=== PATIENT | female | born 1990 | race American Indian/Alaskan Native ===

== ENCOUNTER 2019-12-16 21:40 | Emergency (ER) | payer OTHER ==
[2019-12-16] MEDS ORDERED: Naloxone HCl 0.4 mg/ml Vial ONE (22:06)
[2019-12-16 22:46] LABS: #Eosinphils 0.1 thou/uL (0.0-0.7); #Lymphocytes 1.7 thou/uL (1.20-3.40); #Monocytes 0.3 thou/uL (0.11-0.59); #Neutrophils 3.3 thou/uL (1.40-6.50); %Basophils 0.9 % (0.0-1.0); %Eosinophils 2.3 % (0.0-10.0); %Monocytes 5.7 % (0.0-10.0); %Neutrophils 60.2 % (42.0-75.0); Hemoglobin 14.3 g/dL (12.0-16.0); Mean Corpuscular HGB CONC 34.1 g/dL (32.0-36.0); Mean Corpuscular Hemoglobin 32.3 pg (27.0-31.0); Mean Corpuscular Volume 94.6 fL (78.0-98.0); Mean Platelet Volume 7.1 fL (7.4-10.4); Platelet Count 250 thou/uL (130-400); RBC Distribution Width 12.2 % (11.5-14.5); Red Blood Cell (RBC) Count 4.44 mill/uL (4.20-5.40); White Blood Cell (WBC) Count 5.5 thou/uL (4.8-10.8)
[2019-12-16 23:08] LABS: ALT (SGPT) 10 U/L (8-55); AST (SGOT) 14 U/L (5-34); Acetaminophen Less than 6.0 mcg/mL (10.0-30.0); Alcohol 195 mg/dL (Less than 10); Alkaline Phosphatase 84 U/L (40-110); Anion Gap 11 mmol/L (10-20); BUN (Urea Nitrogen) 8 mg/dL (7.0-18.7); Bilirubin, Total 0.4 mg/dL (0.2-1.2); Calc. Creatinine Clearance 0 mL/min (70-130); Carbon Dioxide 23 mmol/L (22-29); Chloride 108 mmol/L (98-107); Estimated GFR-MDRD 86; Globulin 2.5 g/dL (2.4-3.5); Glucose 102 mg/dL (70-105); Potassium 3.5 mmol/L (3.5-5.1); Protein, Total 6.5 g/dL (6.0-8.3); Salicylate Less than 8.0 mg/dL (15.0-30.0); Sodium 138 mmol/L (136-145)
[2019-12-16 23:35] LABS: Medtox Reader # READER 4
[2019-12-16 23:36] LABS: Amphetamine Detected (NotDetected); Barbiturates Screen Not Detected (NotDetected); Benzodiazepine Screen Not Detected (NotDetected); Cocaine Metabolite Screen Not Detected (NotDetected); Medtox Control Line Valid? VALID (VALID); Methadone Not Detected (NotDetected); Methamphetamine Detected (NotDetected); Opiate Screen Not Detected (NotDetected); Oxycodone Screen Not Detected (NotDetected); Phencyclidine (PCP) Detected (NotDetected); THC/Cannabinoid Screen Detected (NotDetected); Tricyclic Screen Not Detected (NotDetected)
--- NOTE | 2019-12-17 08:52 | CT ---
HEAD CT WITHOUT CONTRAST: DATE: 12/16/2019. COMPARISON: None. HISTORY: Trauma, pain. TECHNIQUE: Axial CT imaging 5 mm intervals from vertex through the skull base without contrast. 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 The visualized paranasal sinuses and mastoid air cells appear well aerated. There is no displaced calvarial fracture, intracranial hemorrhage, midline shif t, or mass effect. IMPRESSION: No intracranial hemorrhage or displaced calvarial fracture. POS: [facility]
--- NOTE | 2019-12-17 08:53 | CT ---
CERVICAL SPINE CT WITHOUT CONTRAST: DATE: 12/16/2019. COMPARISON: None. HISTORY: Injury, trauma, and pain. TECHNIQUE: Axial CT imaging through the cervical spine at 2.5 mm intervals without contrast. Coronal and sagitt al reformatted imaging obtained. FINDINGS: The craniocervical junction, atlantoaxial interspace, and cervicothoracic junctions are intact. No p revertebral soft tissue swelling. No anterolisthesis or retrolisthesis. No acute fracture or disloc ation. IMPRESSION: No acute osseous abnormality. POS: [facility]
--- NOTE | 2019-12-17 08:57 | RAD ---
FOUR VIEWS OF THE LEFT ELBOW: DATE: 12/16/2019. COMPARISON: None. HISTORY: Trauma, pain. FINDINGS: No elbow joint effusion, displaced fracture, or evidence of dislocation is seen. IMPRESSION: No acute findings. POS: [facility]
== END 2019-12-17 03:24 | disposition home or self-care (01) ==
LOC: ERS 21:40
DX: F10.129 Alcohol abuse with intoxication, unspecified (principal); F19.10 Other psychoactive substance abuse, uncomplicated; M54.2 Cervicalgia; M25.522 Pain in left elbow; V89.2XXA Person injured in unspecified motor-vehicle accident, traffic, initial encounter
CPT/HCPCS: 36415; 70450; 72125; 80053; 80306; 80307; 85025; 96361; 96374; A4353; J2310

== ENCOUNTER 2021-09-21 16:41 | Emergency (ER) | payer SELFPAY | END 2021-09-21 17:21 | disposition home or self-care (01) | LOC: ERS 16:41 | DX: M06.9 Rheumatoid arthritis, unspecified (principal) | CPT/HCPCS: 99282 ==